=== PATIENT | female | born 1960 | race Caucasian/White ===

== ENCOUNTER → 2024-05-18 | Outpatient (REF) | LOC: M LAB 14:45 | PROVIDERS: ATTEND Family Medicine | DX: Z01.89 Encounter for other specified special examinations (principal) ==

== ENCOUNTER → 2024-05-29 | Outpatient (REF) | LOC: M RAD 15:07 | PROVIDERS: ATTEND Family Medicine | DX: Z00.00 Encounter for general adult medical examination without abnormal findings (principal) ==